=== PATIENT | female | born 1975 | race African-American/Black ===

== ENCOUNTER 2019-01-01 13:53 | Emergency (ER) | payer OTHER ==
[~2019-01-01] VITALS: Ht 149.9 cm; Wt 72.6 kg
[2019-01-01] MEDS ORDERED: LIORESAL 10 MG10 MG PO (14:36)
[2019-01-01] MEDS ORDERED: NEURONTIN600 MG PO (14:36)
[2019-01-01] MEDS ORDERED: MOBIC15 MG PO (14:37)
[2019-01-01] MEDS ORDERED: CLONAZEPAM 1 MG1 M1 PO (14:37)
[2019-01-01] MEDS ORDERED: PROVIGIL 200 M200 MG PO (14:37)
[2019-01-01] MEDS ORDERED: TYLENOL325 MG PO (14:37)
[2019-01-01 14:39] LABS: ABSOLUTE NEUTROPHILS 3.9 thou/uL (1.4-8.2); BASOPHILS 0.9 % (0.0-2.0); EOSINOPHILS 1.1 % (0.0-3.0); HEMATOCRIT 35.8 % (37.0-47.0); HEMOGLOBIN 11.7 gm/dL (12.0-15.0); LYMPHOCYTES 23.2 % (24.0-44.0); MCHC 32.6 g/dL (28.0-37.0); MCV 82.7 fL (80.0-100.0); MONOCYTES 6.7 % (1.0-8.0); PLATELET COUNT 253 thou/uL (150-400); POLYS 68.1 % (36.0-66.0); RBC 4.33 mil/uL (4.20-5.00); RDW 15.7 % (10.5-14.5); WBC 5.7 thou/uL (4.0-11.0)
[2019-01-01 14:42] LABS: CALCIUM 10.3 mg/dL (8.5-10.1); CREATININE 0.7 mg/dL (0.6-1.0)
[2019-01-01 14:43] LABS: POTASSIUM 5.3 mmol/L (3.5-5.1)
[2019-01-01 14:48] LABS: ALBUMIN 3.7 g/dL (3.4-5.0); TOTAL BILIRUBIN 0.2 mg/dL (<0.1-1.0); TOTAL PROTEIN 7.2 g/dL (6.4-8.2)
[2019-01-01] MEDS ORDERED: BACTRIM DS TAB1 EACH PO (16:45)
[2019-01-01 17:22] LABS: URINE BILIRUBIN NEGATIVE (Negative); URINE BLOOD NEGATIVE (Negative); URINE CLARITY CLEAR; URINE COLOR YELLOW; URINE GLUCOSE-RANDOM* NEGATIVE (Negative); URINE KETONES NEGATIVE (Negative); URINE LEUKOCYTES-REFLEX NEGATIVE (Negative); URINE NITRITE-REFLEX NEGATIVE (Negative); URINE PROTEIN (DIPSTICK) NEGATIVE (Negative); URINE UROBILINOGEN 0.2 E.U./dl (0.2-1.0)
[2019-01-01 18:03] VITALS: BP 117/65
== END 2019-01-01 18:00 | disposition home or self-care (01) ==
LOC: ER 13:53
PROVIDERS: Physician Assistant
DX: L02.211 Cutaneous abscess of abdominal wall (principal); G35 Multiple sclerosis; Z88.6 Allergy status to analgesic agent; Z98.890 Other specified postprocedural states

== ENCOUNTER → 2019-01-10 | Outpatient (CLI) | payer OTHER ==
[~2019-01-10] MED LIST: BACTRIM DS TAB1 EACH PO; CLONAZEPAM 1 MG1 M1 PO; LIORESAL 10 MG10 MG PO; MOBIC15 MG PO; NEURONTIN600 MG PO; PROVIGIL 200 M200 MG PO; TYLENOL325 MG PO
== END ==
LOC: HYPER 01-03 15:43
DX: T81.49XD Infection following a procedure, other surgical site, subsequent encounter (principal); L02.211 Cutaneous abscess of abdominal wall; G35 Multiple sclerosis; F41.9 Anxiety disorder, unspecified; F32.9 Major depressive disorder, single episode, unspecified; Z87.891 Personal history of nicotine dependence; Y83.8 Other surgical procedures as the cause of abnormal reaction of the patient, or of later complication, without mention of misadventure at the time of the procedure

== ENCOUNTER → 2019-01-29 | Outpatient (CLI) | payer OTHER | LOC: HYPER 06:40 | DX: T81.49XD Infection following a procedure, other surgical site, subsequent encounter (principal); G35 Multiple sclerosis; L02.211 Cutaneous abscess of abdominal wall; F41.9 Anxiety disorder, unspecified; F32.9 Major depressive disorder, single episode, unspecified; Z87.891 Personal history of nicotine dependence; Y83.8 Other surgical procedures as the cause of abnormal reaction of the patient, or of later complication, without mention of misadventure at the time of the procedure ==

== ENCOUNTER → 2019-02-12 | Outpatient (CLI) | payer OTHER | LOC: HYPER 07:01 | DX: T81.49XD Infection following a procedure, other surgical site, subsequent encounter (principal); G35 Multiple sclerosis; L02.211 Cutaneous abscess of abdominal wall; F41.9 Anxiety disorder, unspecified; F32.9 Major depressive disorder, single episode, unspecified; Z87.891 Personal history of nicotine dependence; Y83.8 Other surgical procedures as the cause of abnormal reaction of the patient, or of later complication, without mention of misadventure at the time of the procedure ==

== ENCOUNTER → 2019-02-28 | Outpatient (CLI) | payer OTHER | LOC: HYPER 06:54 | DX: T81.49XD Infection following a procedure, other surgical site, subsequent encounter (principal); L02.211 Cutaneous abscess of abdominal wall; G35 Multiple sclerosis; F41.9 Anxiety disorder, unspecified; F32.9 Major depressive disorder, single episode, unspecified; Z87.891 Personal history of nicotine dependence; Y83.8 Other surgical procedures as the cause of abnormal reaction of the patient, or of later complication, without mention of misadventure at the time of the procedure ==